=== PATIENT | male | born 1970 | race Caucasian/White ===

== ENCOUNTER 2018-04-11 22:00 | Emergency (ER) | payer BC ==
[~2018-04-11] VITALS: Ht 182.9 cm; Wt 79.4 kg
[2018-04-11] MEDS ORDERED: MORPHINE SULFATE 10 MG/ML SYRINGE. SQ ONE (22:45)
[2018-04-11] MEDS ORDERED: IV RINGERS SOLUTION,LACTATED 1,000 ML IV SCH (22:45)
[2018-04-11] MEDS ORDERED: FAMOTIDINE 20 MG TABLET PO ONE (22:45)
[2018-04-11] MEDS ORDERED: ONDANSETRON ODT 4 MG TAB.RAPDIS PO ONE (22:45)
--- NOTE | 2018-04-11 22:47 | EKG ---
[address] [address] Test Date: 2018-04-11 Test Time: 22:41:49 Pat Name: MYLES BUNN Department: Room: Gender: M Science Manager: : 1970 Requested By: CROW YU Order Number: [id number] Reading MD: Abundio Sanchez MD Measurements Intervals [place] Rate: 69 P: 31 NC: 156 QRS: 25 QRSD: 104 T: 42 QT: 370 QTc: 398 Interpretive Statements SINUS RHYTHM NON-SPECIFIC ST/T CHANGES Electronically Signed On 04-12-2018 10:25:54 CDT by Abundio Sanchez MD
--- NOTE | 2018-04-11 22:53 | ED.ADGEN ---
Past History Past Medical History: No Pertinent History, Kidney Stones Past Surgical History: No Surgical History Alcohol Use: None Drug Use: None Adult General Chief Complaint Chief Complaint "..I got this severe abd. pain... on the way home tonight... I though I had to go to the bathroom.. but it has never let up.. Here on the Lt. HPI HPI Patient is a 47 year old male who presents with above hx and complaints of Lt flank and lower abd. pain. ..Pt. states pain is severe. Pt. complaints of nausea. Pt. denies trauma. Denies fever or chills. Denies bad food or ill contacts. Pt. reports normal stool prior . Pt. denies previous hx of kidney stones and or diverticulitis. Pt. states he is normally healthy. Pt. pain is exacerbation by percussion Lt flank. No psoas sign of Lt. The patient denies dysuria Review of Systems Review of Systems Constitutional: Denies fever or chills [] Eyes: Denies change in visual acuity, redness, or eye pain [] HENT: Denies nasal congestion or sore throat [] Respiratory: Denies cough or shortness of breath [] Cardiovascular: No additional information not addressed in HPI [] GI: Complains of left flank abdominal pain, nausea, vomiting, bloody stools or diarrhea [] : Denies dysuria. Complains hematuria [] Musculoskeletal: Denies back pain or joint pain [] Integument: Denies rash or skin lesions [] Neurologic: Denies headache, focal weakness or sensory changes [] Endocrine: Denies polyuria or polydipsia [] All other systems were reviewed and found to be within normal limits, except as documented in this note. Family History Family History Noncontributory Current Medications Current Medications Current Medications Medications (Trade) Dose Ordered Sig/Chetan Start Time Stop Time Status Last Admin Dose Admin Famotidine (Pepcid) 20 mg 1X ONCE 04/11/18 22:45 04/11/18 22:49 DC 04/11/18 23:14 20 MG Ketorolac Tromethamine (Toradol) 30 mg 1X ONCE 04/12/18 00:00 04/12/18 00:01 DC 04/12/18 00:09 30 MG Lactated Ringer's 1,000 ml @ 1,000 mls/hr Q1H 04/11/18 22:45 04/11/18 23:44 DC 04/11/18 23:14 1,000 MLS/HR Levofloxacin (Levaquin) 500 mg 1X ONCE 04/12/18 00:00 04/12/18 00:01 DC 04/12/18 00:09 500 MG Magnesium Hydroxide (Milk Of Magnesia) 2,400 mg 1X ONCE 04/12/18 00:00 04/12/18 00:01 DC 04/12/18 00:09 2,400 MG Morphine Sulfate (Morphine 10mg Syringe) 10 mg 1X ONCE 04/11/18 22:45 04/11/18 22:49 DC 04/11/18 23:14 10 MG Ondansetron HCl (Zofran Odt) 8 mg 1X ONCE 04/11/18 22:45 04/11/18 22:49 DC 04/11/18 23:14 8 MG Tamsulosin HCl (Flomax) 0.4 mg 1X ONCE 04/12/18 00:00 04/12/18 00:01 DC 04/12/18 00:09 0.4 MG Allergies Allergies Allergies Coded Allergies Type Severity Reaction Last Updated Verified No Known Drug Allergies 04/11/18 No Physical Exam Physical Exam Constitutional: Well developed, well nourished, in acute distress, non-toxic appearance. [] HENT: Normocephalic, atraumatic, bilateral external ears normal, oropharynx moist, no oral exudates, nose normal. [] Eyes: PERRLA, EOMI, conjunctiva normal, no discharge. [] Neck: Normal range of motion, no tenderness, supple, no stridor. [] Cardiovascular:Heart rate regular rhythm, no murmur [] Lungs & Thorax: Bilateral breath sounds clear to auscultation [] Abdomen: Bowel sounds decreased, soft, left flank tenderness, no masses, no pulsatile masses. [] Skin: Warm, dry, no erythema, no rash. [] Back: No tenderness, no CVA tenderness. [] Extremities: No tenderness, no cyanosis, no clubbing, ROM intact, no edema. [] No psoas or obturator sign Neurologic: Alert and oriented X 3, normal motor function, normal sensory function, no focal deficits noted. [] Psychologic: Affect normal, judgement normal, mood normal. [] Current Patient Data Vital Signs Vital Signs Date Time Temp Pulse Resp B/P (MAP) Pulse Ox O2 Delivery O2 Flow Rate FiO2 04/12/18 00:20 55 20 109/69 (82) 98 Room Air 04/11/18 23:20 98.3 Lab Results Laboratory Tests Test 04/11/18 23:00 04/11/18 23:50 White Blood Count 10.3 x10^3/uL (4.0-11.0) Red Blood Count 4.59 x10^6/uL (4.30-5.70) Hemoglobin 14.4 g/dL (13.0-17.5) Hematocrit 42.7 % (39.0-53.0) Mean Corpuscular Volume 93 fL (79-100) Mean Corpuscular Hemoglobin 31 pg (25-35) Mean Corpuscular Hemoglobin Concent 34 g/dL (31-37) Red Cell Distribution Width 14.0 % (11.5-14.5) Platelet Count 246 x10^3/uL (140-400) Neutrophils (%) (Auto) 82 % (31-73) H Lymphocytes (%) (Auto) 10 % (24-48) L Monocytes (%) (Auto) 8 % (0-9) Eosinophils (%) (Auto) 1 % (0-3) Basophils (%) (Auto) 1 % (0-3) Neutrophils # (Auto) 8.5 x10^3uL (1.8-7.7) H Lymphocytes # (Auto) 1.0 x10^3/uL (1.0-4.8) Monocytes # (Auto) 0.8 x10^3/uL (0.0-1.1) Eosinophils # (Auto) 0.1 x10^3/uL (0.0-0.7) Basophils # (Auto) 0.1 x10^3/uL (0.0-0.2) Prothrombin Time 10.0 SEC (9.4-11.4) Prothrombin Time INR 1.0 (0.9-1.1) PTT 31 SEC (23-33) Sodium Level 138 mmol/L (136-145) Potassium Level 4.3 mmol/L (3.5-5.1) Chloride Level 105 mmol/L (98-107) Carbon Dioxide Level 23 mmol/L (21-32) Anion Gap 10 (6-14) Blood Urea Nitrogen 20 mg/dL (8-26) Creatinine 1.0 mg/dL (0.7-1.3) Estimated GFR (Cockcroft-Gault) 80.4 Glucose Level 94 mg/dL (70-99) Calcium Level 9.3 mg/dL (8.5-10.1) Total Bilirubin 0.8 mg/dL (0.2-1.0) Direct Bilirubin 0.2 mg/dL (0.0-0.2) Aspartate Amino Transferase (AST) 20 U/L (15-37) Alanine Aminotransferase (ALT) 25 U/L (16-63) Alkaline Phosphatase 106 U/L (46-116) Creatine Kinase 108 U/L (39-308) Creatine Kinase MB (Mass) 0.7 ng/mL (0.0-3.6) Creatine Kinase MB Relative Index 0.6 % (0-4) Troponin I Quantitative < 0.017 ng/mL (0-0.055) Total Protein 7.2 g/dL (6.4-8.2) Albumin 3.9 g/dL (3.4-5.0) Lipase 59 U/L (73-393) L Urine Collection Type Unknown Urine Color Yellow Urine Clarity Hazy Urine pH 5.5 Urine Specific Orgas 1.015 Urine Protein 30 mg/dl (NEG-TRACE) Urine Glucose (UA) Neg mg/dL (NEG) Urine Ketones (Stick) 40 mg/dL (NEG) Urine Blood Large (NEG) Urine Nitrite Neg (NEG) Urine Bilirubin Neg (NEG) Urine Urobilinogen Dipstick 0.2 mg/dL (0.2 mg/dL) Urine Leukocyte Esterase Neg (NEG) Urine RBC 20-40 /HPF (0-2) Urine WBC Occ /HPF (0-4) Urine Squamous Epithelial Cells Occ /LPF Urine Bacteria 0 /HPF (0-FEW) Urine Opiates Screen Pos (NEG) Urine Methadone Screen Neg (NEG) Urine Barbiturates Neg (NEG) Urine Phencyclidine Screen Neg (NEG) Urine Amphetamine/Methamphetamine Neg (NEG) Urine Benzodiazepines Screen Neg (NEG) Urine Cocaine Screen Neg (NEG) Urine Cannabinoids Screen Neg (NEG) Urine Ethyl Alcohol Neg (NEG) EKG EKG [] Radiology/Procedures Radiology/Procedures My interpretation of acute abdomen film shows no acute cardiopulmonary findings. No free air under the diaphragm. Has increased stool throughout the colon. Consistent with constipation. There appears to be a calcification in left lower quadrant on film. My interpretation of CT of abdomen and pelvis shows no free air. No acute inflammatory bowel findings. Does have findings of left hydronephrosis with a distal renal stone. See formal reports are available[] Course & Med Decision Making Course & Med Decision Making Pertinent Labs and Imaging studies reviewed. (See chart for details) Discussed options of treatment with patient- patient requests discharge home. Patient to follow-up with primary care and urology. Patient take Zofran 8 mg up 4 times a day for nausea and vomiting. Patient may take Tylenol and ibuprofen for pain. For marked pain may take Vicoprofen up 4 times a day. Patient take milk of magnesia daily to prevent constipation if taking narcotics. Follow-up with urology. Must follow-up with primary. Patient return if any concerns. Patient take Flomax 0.4 mg daily until stone is passed. Patient also started on Levaquin 500 daily. [] Final Impression Final Impression 1. Left flank/abdomen pain 2. Left distal renal stone with hydronephrosis.[]-Stone appears near the UVJ Dragon Disclaimer Dragon Disclaimer This electronic medical record was generated, in whole or in part, using a voice recognition dictation system. CROW YU MD Apr 11, 2018 22:53
[2018-04-11 23:19] LABS: BASO # 0.1 x10^3/uL (0.0-0.2); BASO % 1 % (0-3); EOS # 0.1 x10^3/uL (0.0-0.7); EOS % 1 % (0-3); HEMATOCRIT 42.7 % (39.0-53.0); HEMOGLOBIN 14.4 g/dL (13.0-17.5); LYMPH % 10 % (24-48); MEAN CORPUSCULAR HEMOGLOBIN 31 pg (25-35); MEAN CORPUSCULAR HGB CONC 34 g/dL (31-37); MEAN CORPUSCULAR VOLUME 93 fL (79-100); MONO # 0.8 x10^3/uL (0.0-1.1); MONO % 8 % (0-9); NEUT # 8.5 x10^3uL (1.8-7.7); NEUT % 82 % (31-73); PLATELET COUNT 246 x10^3/uL (140-400); RED BLOOD COUNT 4.59 x10^6/uL (4.30-5.70); WHITE BLOOD COUNT 10.3 x10^3/uL (4.0-11.0)
--- NOTE | 2018-04-11 23:32 | RAD ---
CT abdomen and pelvis without contrast: Reason for examination: Severe left-sided flank and abdominal pain today. Helical images were obtained through the abdomen and pelvis with no intravenous or oral contrast administered. Reconstruction was performed in sagittal and coronal plane. Exposure: One or more of the following individualized dose reduction techniques were utilized for this examination: 1. Automated exposure control 2. Adjustment of the mA and/or kV according to patient size 3. Use of iterative reconstruction technique. The lung bases are clear. The heart size is normal with no pericardial effusion. No abnormality seen at the liver, spleen, adrenal glands, gallbladder or pancreas. The abdominal aorta and inferior vena cava appear to be normal course and caliber. No abnormality seen at the appendix. The intestinal tract shows no abnormally dilated loops of bowel or thickened bowel chahal. There is no evidence of diverticulosis or diverticulitis. The right kidney shows no renal mass, renal calculi, hydronephrosis or evidence of obstructive uropathy. The left kidney however shows no evidence of a mass but there is mild hydronephrosis due to obstructive uropathy from a 5.4 mm calculus at the left ureterovesical junction. No other abnormality is seen at the bladder. No abnormality seen at the prostate gland or seminal vesicles. No free fluid or free air seen in the pelvis. IMPRESSION: 5.4 mm calculus at the left ureterovesical junction causing obstructive uropathy with mild hydronephrosis. Electronically signed by: Yodit Gutierrez MD (04/11/2018 11:28 PM) [id number]
[2018-04-11 23:41] LABS: ALBUMIN 3.9 g/dL (3.4-5.0); CALCIUM 9.3 mg/dL (8.5-10.1); DIRECT BILIRUBIN 0.2 mg/dL (0.0-0.2); GFR 80.4; POTASSIUM 4.3 mmol/L (3.5-5.1); TOTAL BILIRUBIN 0.8 mg/dL (0.2-1.0); TOTAL PROTEIN 7.2 g/dL (6.4-8.2)
[2018-04-11] MEDS ORDERED: LEVO500T59 PO (23:54)
[2018-04-11] MEDS ORDERED: HYDR-79 PO (23:54)
[2018-04-11] MEDS ORDERED: ONDA8TAB12 PO (23:54)
[2018-04-11] MEDS ORDERED: TAMS0.4C97 PO (23:54)
[2018-04-12] MEDS ORDERED: TAMSULOSIN 0.4 MG CAP.ER.24H. PO ONE
[2018-04-12] MEDS ORDERED: KETOROLAC 30 MG/ML VIAL. IV ONE
[2018-04-12] MEDS ORDERED: levoFLOXacin 500 MG TABLET PO ONE
[2018-04-12] MEDS ORDERED: MAGNESIUM HYDROXIDE 2,400 MG/30 ML ORAL.SUSP. PO ONE
[2018-04-12 00:18] LABS: BARBITURATES NEG (NEG); BENZODIAZEPINES NEG (NEG); BILIRUBIN,URINE NEG (NEG); CANNABINOIDS NEG (NEG); CLARITY,URINE HAZY; COCAINE NEG (NEG); COLOR,URINE YELLOW; GLUCOSE,URINE NEG (NEG); METHADONE NEG (NEG); OPIATES POS (NEG); PHENCYCLIDINE NEG (NEG)
[2018-04-12 00:19] LABS: BACTERIA,URINE 0 /HPF (0-FEW); NITRITE,URINE NEG (NEG); RBC,URINE 20-40 /HPF (0-2); SQUAMOUS EPITHELIAL CELL,UR OCC /LPF; UROBILINOGEN,URINE 0.2 mg/dL (0.2 mg/dL); WBC,URINE OCC /HPF (0-4)
[2018-04-12 00:20] VITALS: BP 109/69
[2018-04-12 00:20] LABS: AMPHETAMINE/METHAMPHETAMINE NEG (NEG)
--- NOTE | 2018-04-12 04:10 | RAD ---
Acute abdominal series with PA chest: Reason for examination: Severe left flank and abdominal pain today. The heart size is normal. Mediastinum is unremarkable. Lung mcqueen are clear. No acute bony abnormalities are evident. In the abdomen, there is no gross organomegaly. Psoas muscles are symmetric. The bowel gas pattern is nonspecific. There appears to be a faint calcific density low in the left pelvis measuring approximately 4.5 mm in greatest dimension. Distal ureteral calculus cannot be excluded. No acute bony abnormalities are seen. IMPRESSION: Faint 4.5 mm calculus to the left of the coccyx in the low pelvis. Distal left ureteral calculus cannot be excluded. Electronically signed by: Yodit Gutierrez MD (04/12/2018 4:06 AM) [id number]
== END 2018-04-12 00:31 | disposition home or self-care (01) ==
LOC: ER 22:17
DX: N13.2 Hydronephrosis with renal and ureteral calculous obstruction (principal); Z87.442 Personal history of urinary calculi
CPT/HCPCS: 36415; 74022; 74176; 80048; 80076; 80307; 81001; 82553; 83690; 84484; 85025; 85610; 85730; 93005; 96361; 96372; 96374; 99285; J1885; J2270; J7120; Q0162; G0479